=== PATIENT | male | born 1955 | race Caucasian/White ===

== ENCOUNTER 2024-07-25 08:39 | Outpatient (CLI) | payer OTHER | END 2024-07-25 08:40 | disposition home or self-care (01) | LOC: CSHCT 08:39 | PROVIDERS: ATTEND Specialist | DX: R09.81 Nasal congestion (principal); R31.9 Hematuria, unspecified; J34.89 Other specified disorders of nose and nasal sinuses; M89.8X8 Other specified disorders of bone, other site; N28.89 Other specified disorders of kidney and ureter; N32.89 Other specified disorders of bladder; K57.30 Diverticulosis of large intestine without perforation or abscess without bleeding | CPT/HCPCS: 74176 ==

== ENCOUNTER 2024-08-23 14:41 | Outpatient (CLI) | payer OTHER | END 2024-08-23 14:42 | disposition home or self-care (01) | LOC: CSHMRI 14:41 | PROVIDERS: ATTEND Specialist | DX: Q01.9 Encephalocele, unspecified (principal); R90.82 White matter disease, unspecified; G31.9 Degenerative disease of nervous system, unspecified; J34.89 Other specified disorders of nose and nasal sinuses | CPT/HCPCS: 70551 ==